=== PATIENT | male | born 1970 ===

== ENCOUNTER 2024-08-17 21:02 | Emergency (ER) | payer SELFPAY ==
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
--- NOTE | 2024-08-17 21:15 | PC.NURSE ---
shola erp zych stat chest x-ray
[2024-08-17 21:20] VITALS: BP 101/63; PULSE 93; RESP 20; TEMP 36.8; O2SAT 100
--- NOTE | 2024-08-18 00:44 | PC.NURSE ---
pt verbalized to administration internship I am leaving.
--- OUTSIDE RECORDS SUMMARY | 2024-08-25 01:16 | XMS_ITS | CONTINUITY OF CARE DOCUMENT ---
Author Name marissa ann Address Unknown Organization [facility] Address [address] [place] [address] Phone [phone] Care Team Providers Care Mud Engineer Name Role Phone Desire MEDINA, Pilo Unavailable [phone] Pilo Phipps MD Unavailable PROBLEMS Condition Status Date Provider Notes Pulmonary embolism active Pilo Phipps MD Hypoalbuminemia active Pilo Phipps MD Screening active Pilo Phipps MD FAMILY HISTORY OF HEART DISEASE active Pilo Phipps MD dad has pacer Tobacco dependence, continuous active Pilo Phipps MD Cocaine use active Pilo Phipps MD Importe d from [employer]: [employer] (27-Feb-2024 at 03:45:47 PM) Systolic heart failure, chronic active Pilo Phipps MD lowest 23, has exterjapm def9b Left temporal lobe infarction active Pilo Phipps MD neg cta Lung nodule seen on imaging study active Pilo Phipps MD Imported from [facility]: [employer] (27-Feb-2024 at 03:45:47 PM) Severe mitral regurgitation active Pilo otoole MD Imported from [facility]: [employer] (27-Feb-2024 at 03:45:47 PM) Hernia, inguinal active Pilo Phipps MD Tricuspid regurgitation, mild active Pilo Phipps MD Abnormal weight loss active Pilo Pino Hyperlipidemia active Pilo Phipps MD ENCOUNTERS Date Type Provider Location Encounter Diag nosis 2 - 2 In-person encounter Office Visit Pilo Phipps MD [place] [facility] HypoalbuminemiaScreeningFAMILY HISTORY OF HEART DISEASETobacco dependence, continuousHyperlipidemiaCocaine useSystolic heart failure, chronicLeft temporal lobe infarctionLung nodule seen on imaging studySevere mitral regurgitationHernia, inguinalTricuspid regurgitation, mildAbnormal weight loss VITAL SIGNS Date Observation Value Provider Body Mass Index (Ratio) 19.05 kg/m2 Zuleima Phipps MD blood pressure, diastolic -1 mm[Hg] Bethanie nkLog blood pressure, systolic 89 mm[Hg] Dinorah [facility] blood pressure, diastolic 62 mm[Hg] Rolando [facility] blood pressure, systolic 89 mm[Hg] [facility] pulse rate 94 /min [facility] y blood pressure, cuff size regular [facility] height E&M 69 [in_i] [facility] y oxygen saturation, oximetry 99 % [facility] respiratory rate E&M 14 /min [facility] weight E&M 129 [lb_av] [facility] y ALLERGIES No Known Drug Allergies HISTORY OF MEDICATION USE Medication Status Instructions Dates Provider Indications Com ments aspirin 81 mg tablet,delayed release (DR/EC) active TAKE 1 TABLET BY MOUTH EVERY DAY Pilo Phipps MD furosemide 40 mg tablet active Pilo Phipps MD atorvastatin 40 mg tablet active Pilo Phipps MD sertraline 50 mg tablet active Pilo Phipps MD carvedilol 3.125 mg tablet active Pilo Phipps MD Jardiance 10 mg tablet active Pilo Phipps MD spironolactone 25 mg tablet active Pilo Phipps MD SOCIAL HISTORY Date Observation Value Provider smoking/tobacco cess ation, patient education and counseling yes Pilo Phipps MD smoking history, total pack/day 1/ [facility] cigarette use yes Sathya Cortez ay smoking status Current every day smoker Derrick Forbes INSURANCE PROVIDERS Payer name Policy type / Coverage type [employer] party ID [facility] Medicaid [id number] ADVANCE DIRECTIVES Name Date DISCUSSED - NO DECISION MADE TREATMENT PLAN Date Name Performer Cardiology Pilo Phipps MD Cardiology Pilo Phipps MD Cardiology Pilo Phipps MD Cardiology Pilo Phipps MD Cardiology:[id number] Pilo Phipps MD Cardiology:The patie nt is between 50-77 years old and has smoked at least 20 pack years. The patient is either a current smoker or has quit within the past 15 years. T he patient is recommended to have low dose CT scan for lung cancer screening. Has been counseled regarding the importance of tobacco cessation and abstinence. Shared decision making during this office visit included discussion of the benefits and harms of screening, possible future recommendations of follow-up diagnostic testing, and total amount of radiation exposure. The patient was recommended to have annual low dose CT scan for lung cancer screening and is willing to undergo diagnosis and treatment. Pilo Phipps MD Cardiology Pilo Phipps MD Cardiology:neg egfr and tsh n eg a1c n eg ct pe Pilo Phipps MD Date Name PROTHROMBIN TIME WIT H INR CBC (INCLUDES DIFF/P LT) BASIC METABOLIC PANE L W/EGFR CT Chest without con trast PROBNP, N TERMINAL CRP, high sensitivit y LIPID PANEL Lipoprotein (a) IRON AND TOTAL IRON BINDING CAPACITY Microalb/Creatinine Urine, Random HISTORY OF PROCEDURES Procedure Date Procedure Name Provider Procedure Notes S tatus Counseling LDCT Pilo Phipps MD com pleted EKG Pilo Phipps MD complete d
--- OUTSIDE RECORDS SUMMARY | 2024-08-25 01:16 | XMS_ITS | Continuity of Care Document ---
Author Organization [facility] Address [address] [place] [address] [address] [place] [address] Phone Care Team Providers Care Floor Inspector Name Role Phone Lonny MS, OTR/L, CHT, Jag Unavailable Nora vailable Procedures Procedure Date OT EVALUATION ORTHOTIC FITTING Forearm Advance Directives Directive Yes / No Effective Date File Name No Information Encounters Encounter Description Practice Location Reason(s) For Visit Diagnoses Date Provider Providers Copied on Encounter [facility], [address] [place] [address], [place], [place], [id number], tel:[phone] Luna Pain in right handMuscle weakness (generalized)O ther specified soft tissue disordersUnsp fx fifth MC bone, right hand, subs for fx w routn heal [id number] [address] [facility], [address], [place], [address], . tel:[phone] Referring Provider: José Antonio Butler Jr, [address], [facility] [place], [address]. tel:[phone] Family History Family Member Type Diagnosis Age At Onset No Information Payers Payer name Insurance type Covered constitution party ID Authoriza tijesus(s) [employer] [id number] Social History Type Description Quantity Date Captured Comments Sex Male Smoking Status No Information Chief Complaint And Reason For Visit No Information Reason For Referral Reason For Referral No Information History Of Present Illness Encounter Date Complaint History Of Prese nt Illness No Information Functional Status Date Functional Assessmen t No Information Instructions Date Instruction Additional Infor mation No Information Assessments Type Assessment Date No Information Patient Care Teams Name Effective Dates (start - stop) Status Members No Information
== END 2024-08-18 01:32 | disposition left against medical advice (07) ==
LOC: ANHED 08-18 01:27
PROVIDERS: Emergency Provider Emergency Medicine
DX: M54.2 Cervicalgia (principal); M54.9 Dorsalgia, unspecified; R06.2 Wheezing
CPT/HCPCS: 71046; 99199